=== PATIENT | female | born 1970 | race Caucasian/White ===

== ENCOUNTER → 2016-05-09 | Day surgery (SDC) | payer BC ==
[~2016-05-09] MED LIST: BUPIVACAINE HCL PF 0.5% 10 ML VIAL ONE; KETOROLAC TROMETHAMINE 30 MG/ML (IVP) VIAL IV PUSH ONE; LACTATED RINGER'S 1000 ML INJ 1,000 ML ONE; MIDAZOLAM HCL 2 MG/2 ML VIAL ONE; MORPHINE SULFATE 4 MG/ML INJ ONE; ONDANSETRON HCL 4 MG/2 ML VIAL IV PUSH ONE; PROPOFOL 200 MG/20 ML AMP IV ONE; ceFAZolin 2 GM PREMIX 50 ML ONE
--- NOTE | 2016-05-10 09:20 | MP ---
cc: SHAZIA VUONG DATE OF SURGERY: 05/09/[address] Shazia Vuong ENAMEL DIPPER None. PREOPERATIVE DIAGNOSIS Right ankle fibular fracture. POSTOPERATIVE DIAGNOSIS 1. Right ankle fibular fracture. 2. Right ankle syndesmotic disruption. PROCEDURE PERFORMED 1. Right ankle ORIF. 2. Exam under anesthesia. 3. Right ankle syndesmotic ORIF. ESTIMATED BLOOD LOSS Less than 5 mL. ANESTHESIA General. HEMOSTASIS Pneumatic thigh tourniquet for 92 minutes at 250 mmHg. INJECTABLES 10 cc of 0.5% Marcaine plain. MATERIALS USED Includes Arthrex plate and locking and nonlocking screws. COMPLICATIONS None. INDICATIONS Ms. Parker slipped and had a fall within her home on Friday May 06, 2016. She was seen in the urgent care at [facility] who sent the radiographs to my partner. My partner then sent them to me for further evaluation. It was noted that she did have displacement and is only [id number], therefore I felt she would benefit from an ORIF. The patient had transportation difficulties as I was in an office further away so she was screened and pre-op'd by my partner, Dr. Aramis Macias, who determined that she had adequate blood flow, minimal swelling and was a good surgical candidate. I spoke to the patient in detail regarding the procedure and the recovery prior to her being given any anesthesia medications. The consent was signed. The procedure was explained. There were no guarantees given. PROCEDURE Under mild sedation the patient was brought into the operating room, placed on the operating table in a supine position. Following IV sedation a pneumatic thigh tourniquet was placed around the right thigh. The leg was then scrubbed, prepped and draped in the usual aseptic manner. Attention was directed to the distal one-third of the fibula where a linear longitudinal incision was created, was deepened through skin and subcutaneous tissue with care being taken to identify and retract any vital neurovascular structures. It was deepened to the level of bone and the oblique fracture of the fibula was quickly noted. A curet was used to remove debris and hematoma from the fracture line and then flushed with copious amounts of sterile saline. The fracture line was then re-approximated using bone clamps and the alignment was confirmed under fluoroscopy. The tibiotalar joint was in excellent alignment and the length of the fibula had been restored. Attention was then directed to the fracture fragment itself for a lag screw. Based on the shape of the fracture the decision was made to initiate that lag screw from a posterior distal aspect and advance to a proximal anterior aspect. Once the screw was inserted there was excellent compression noted across the fracture line. One of bone clamps was removed and a lateral locking fibular plate was applied. Once the plate was secured it was again checked under fluoroscopy and noted to be in excellent alignment and the plate was in excellent position. So it was then put through stress abduction testing and there was a definite medial clear space widening which was confirmed on radiography. The decision was then made to add a syndesmotic screw. The first syndesmotic screw was through the plate and unfortunately was too posterior and not stable. The decision was made to remove this screw and place an independent lag screw on the posterior aspect of the plate. This gave excellent compression and bite and was noted to be in the central aspect of the tibia. A second stress test was performed and there was notably less to no medial clear space widening. The area was flushed with copious amounts of sterile saline. The deep and subcutaneous tissues were closed with 3-0 Monocryl. Skin was closed with 3-0 Prolene. 10 cc of 0.5% Marcaine plain were injected around the incision site. The pneumatic thigh tourniquet was released. There was a prompt hyperemic response to all digits of the right foot. A well-padded posterior splint was applied to the right leg. The patient tolerated the procedure and the anesthesia well. She will recover in the PACU for a period time before being discharged home with written and oral postoperative instructions. Shazia BRICE/BT /9:45 AM /9:05 AM
== END | disposition home or self-care (01) ==
LOC: ESDC 06:38
PROVIDERS: ATTEND Podiatrist Foot & Ankle Surgery
DX: S82.891A Other fracture of right lower leg, initial encounter for closed fracture (principal); S93.431A Sprain of tibiofibular ligament of right ankle, initial encounter; W01.0XXA Fall on same level from slipping, tripping and stumbling without subsequent striking against object, initial encounter; Y93.9 Activity, unspecified; Y92.009 Unspecified place in unspecified non-institutional (private) residence as the place of occurrence of the external cause
CPT/HCPCS: 01480; 27792; 73610; 76000; C1713; J0690; J1885; J2250; J2270; J2405; J3010; J7120